=== PATIENT | female | born 1990 | race Caucasian/White ===

== ENCOUNTER 2018-10-11 20:41 | Emergency (ER) | END 2018-10-11 23:28 | disposition home or self-care (01) ==

== ENCOUNTER 2018-12-04 23:15 | Emergency (ER) | payer SELFPAY ==
[~2018-12-04] VITALS: Ht 154.9 cm; Wt 53.2 kg
[2018-12-04 23:20] VITALS: Ht 154.9 cm; Wt 53.2 kg
--- NOTE | 2018-12-05 02:55 | ERD ---
ER Documentation Chief Complaint Chief Complaint vaginal bleeding/abd pain x 2 days. denies HPI This is a 28-year-old female who presents to emergency department with complaints of vaginal bleeding, pelvic pain for about 2 days. Change 2 pads in the last 24 hours. LMP: Unknown. and 1. Denies headache, dizziness, blurry vision, changes in vision, neck pain, neck stiffness, throat pain, difficulty swallowing, difficulty breathing lying flat, loss of bowel bladder control, urinary symptoms, or possibility of being , vaginal bleeding, vaginal discharge, trauma, injury, falls, recent surgery in the last 3 weeks, recent travel, recent long travel, leg pain, difficulty walking, numbness or tingling sensation, recent exposure to any illness, recent antibiotic use in the last 3 months, fever, chills. ROS All systems reviewed and are negative except as per history of present illness. Medications Home Meds Active Scripts Ibuprofen* (Motrin*) 600 Mg Tab, 600 MG PO Q6H PRN for PAIN AND OR ELEVATED TEMP, #30 TAB Prov:ANTONIA SMITH Ashok 12/05/18 Allergies Allergies: Coded Allergies: No Known Allergy (Unverified , 10/11/18) PMhx/Soc History of Surgery: Yes (c/section x1) Anesthesia Reaction: No Hx Neurological Disorder: No Hx Respiratory Disorders: No Hx Cardiac Disorders: No Hx Psychiatric Problems: No Hx Miscellaneous Medical Probl: No Hx Alcohol Use: No Hx Substance Use: No Hx Tobacco Use: No Smoking Status: Never smoker Physical Exam Vitals Physical Exam Const: No acute distress Head: Atraumatic Eyes: Normal Conjunctiva ENT: Normal External Ears, Nose and Mouth. Neck: Full range of motion. No meningismus. Resp: Clear to auscultation bilaterally Cardio: Regular rate and rhythm, no murmurs Abd: Soft, non tender, non distended. Normal bowel sounds. Negative Martin sign. Negative [place] sign (heel jar test). Negative psoas sign. Negative Rovsing sign. No CVA tenderness. Skin: No petechiae or rashes. Color appears normal for ethnicity. Back: No midline or flank tenderness Ext: No cyanosis, or edema Neur: Awake and alert. No neurological deficit. Psych: Normal Mood and Affect Result Diagram: 12/05/18 0304 12/05/18 0304 Results 24 hrs Laboratory Tests Test 12/05/18 03:04 12/05/18 03:13 White Blood Count 7.8 10^3/ul Red Blood Count 3.81 10^6/ul Hemoglobin 10.8 g/dl Hematocrit 33.5 % Mean Corpuscular Volume 87.9 fl Mean Corpuscular Hemoglobin 28.3 pg Mean Corpuscular Hemoglobin Concent 32.2 g/dl Red Cell Distribution Width 11.8 % Platelet Count 335 10^3/UL Mean Platelet Volume 8.6 fl Immature Granulocytes % 0.100 % Neutrophils % 56.4 % Lymphocytes % 34.3 % Monocytes % 7.6 % Eosinophils % 1.3 % Basophils % 0.3 % Nucleated Red Blood Cells % 0.0 /100WBC Immature Granulocytes # 0.010 10^3/ul Neutrophils # 4.4 10^3/ul Lymphocytes # 2.7 10^3/ul Monocytes # 0.6 10^3/ul Eosinophils # 0.1 10^3/ul Basophils # 0.0 10^3/ul Nucleated Red Blood Cells # 0.0 10^3/ul Prothrombin Time 12.5 Sec Prothrombin Time Ratio 1.0 INR International Normalized Ratio 0.92 Activated Partial Thromboplast Time 28.4 Sec Urine Color YELLOW Urine Clarity SLIGHTLY CLOUDY Urine pH 6.0 Urine Specific [place] 1.018 Urine Ketones NEGATIVE mg/dL Urine Nitrite NEGATIVE mg/dL Urine Bilirubin NEGATIVE mg/dL Urine Urobilinogen NEGATIVE mg/dL Urine Leukocyte Esterase NEGATIVE Kenneth/ul Urine Microscopic RBC 9 /HPF Urine Microscopic WBC 5 /HPF Urine Squamous Epithelial Cells FEW /HPF Urine Bacteria FEW /HPF Urine Mucus FEW /HPF Urine Yeast (Budding) FEW /HPF Urine Hemoglobin 3+ mg/dL Urine Glucose NEGATIVE mg/dL Urine Total Protein NEGATIVE mg/dl Sodium Level 140 mmol/L Potassium Level 4.0 mmol/L Chloride Level 103 mmol/L Carbon Dioxide Level 27 mmol/L Anion Gap 10 Blood Urea Nitrogen 16 mg/dl Creatinine 0.63 mg/dl Est Glomerular Filtrat Rate mL/min > 60 mL/min Glucose Level 95 mg/dl Calcium Level 9.7 mg/dl Total Bilirubin 0.2 mg/dl Direct Bilirubin 0.00 mg/dl Indirect Bilirubin 0.2 mg/dl Aspartate Amino Transf (AST/SGOT) 25 IU/L Alanine Aminotransferase (ALT/SGPT) 11 IU/L Alkaline Phosphatase 65 IU/L Total Protein 8.6 g/dl Albumin 4.9 g/dl Globulin 3.70 g/dl Albumin/Globulin Ratio 1.32 Amylase Level 83 U/L Lipase 92 U/L POC Beta HCG, Qualitative NEGATIVE Procedures/MDM Diagnostic tests: POC urine : Negative. Urinalysis: Reviewed. Culture urine: Sent. Blood works: Reviewed. Pelvic ultrasound: Probable stable right paraovarian cyst. Otherwise unremarkable study. Treatment: Motrin. Re-evaluation: Denies vaginal bleeding. No signs of hemorrhaging. Differential diagnosis I have low suspicion for ovarian cyst rupture, ovarian torsion, severe hemorrhage, sepsis. Final diagnosis: Vaginal bleeding. Ovarian cyst. Prescription: Motrin. Follow-up with PCP in the next 24-48 hours. Follow-up with pulverizer operator in the next 24-48 hours. Come back here in the emergency department for any new symptoms or any worsening symptoms. All questions and concerns were answered. Patient and family members verbalized understanding and agreed with plan of care. Hemodynamically stable on discharge. Departure Diagnosis: Primary Impression: Ovarian cyst Condition: Stable Additional Instructions: Follow-up with PCP in the next 24-48 hours. Follow-up with pulverizer operator in the next 24-48 hours. Come back here in the emergency department for any new symptoms or any worsening symptoms. ANTONIA SMITH Dec 05, 2018 02:55
[2018-12-05] MEDS ORDERED: IBUP-1542 PO (04:54)
[2018-12-05 05:11] VITALS: BP 122/76; PULSE 68; RESP 16
== END 2018-12-05 05:12 | disposition home or self-care (01) ==
LOC: FTE 23:15
DX: N83.201 Unspecified ovarian cyst, right side (principal); R10.2 Pelvic and perineal pain
CPT/HCPCS: 36415; 76830; 76856; 80053; 81001; 81025; 82150; 83690; 85025; 85610; 85730; 87086